=== PATIENT | female | born 1995 ===

== ENCOUNTER 2019-09-16 18:50 | Emergency (ER) | payer BC ==
[2019-09-16 19:10] VITALS: BP 129/62
[2019-09-16] MEDS ORDERED: Al Hydrox/Mg Hydrox/Simet LIQ* 30 ML UDC PO ONE (19:52)
[2019-09-16] MEDS ORDERED: Lidocaine 2% VISCOUS* 15 ML UDC PO ONE (19:53)
[2019-09-16] MEDS ORDERED: Famotidine TAB* 20 MG PO ONE (19:54)
--- NOTE | 2019-09-16 20:00 | ED ---
Abdominal Pain/Female - HPI Summary HPI Summary: 24 yo WF p/w epigastric pain radiating to right flank since yesterday after taking PO B12 tablet on an empty stomach when pain started and did not subside in spite of taking pepto bismol and mag citrate, Not related to eating food - History of Current Complaint Chief Complaint: UCAbdominalPain Stated Complaint: ABDOMINAL PAIN Time Seen by Provider: 09/16/19 19:40 Hx Obtained From: Patient Hx Last Menstrual Period: 08/24/2019 ?: No Onset/Duration: Sudden Onset, Lasting Hours Timing: Constant Severity Initially: Moderate Severity Currently: Moderate Pain Intensity: 6 Location: Epigastric, Flank - R Character: Sharp, Dull, Burning Aggravating Factor(s): Nothing Alleviating Factor(s): Nothing Allergies/Adverse Reactions: Allergies Allergy/AdvReac Type Severity Reaction Status Date / Time No Known Allergies Allergy Verified 09/16/19 19:10 Home Medications: Home Medications Acetaminophen 325 mg SUPP [Tylenol 325 mg Supp] 325 mg [place] Q4H PRN 09/16/19 [ History Confirmed 09/16/19] Ranitidine TAB (NF) [Zantac TAB (NF)] 150 mg PO BID PRN 10 Days #20 tab [Rx] PMH/Surg Hx/FS Hx/Imm Hx Previously Healthy: Yes - Surgical History Surgery Procedure, Year, and Place: left eye reconstructive surgery at 4 yrs old Infectious Disease History: No Infectious Disease History: Denies: Traveled Outside the [place] in Last 30 Days - Family History Known Family History: Positive: Non-Contributory - Social History Occupation: Student Alcohol Use: None Substance Use Type: Reports: None Smoking Status (MU): Never Smoked Tobacco Review of Systems Constitutional: Negative Eyes: Negative ENT: Negative Cardiovascular: Negative Respiratory: Negative Positive: Abdominal Pain - epigastric radiating to right flank Musculoskeletal: Negative Skin: Negative Neurological/Mental Status: Negative Psychological: Normal All Other Systems Reviewed And Are Negative: Yes Physical Exam - Summary Physical Exam Summary: Gen: NAD Eye Exam: Normal Eyes: Positive: Conjunctiva Clear ENT: Normal ENT inspection Neck: Supple Respiratory: Lungs clear, Normal breath sounds. Negative: Crackles, Rhonchi, Stridor, Wheezing Cardiovascular Exam: Normal, RRR, S1, S2 Abdomen: NT/ND Musculoskeletal Exam:moderate TTP on right upper abd and epigastric tenderness Neurological Exam: Normal Psychological Exam: Normal Skin Exam: Normal Vital Signs On Initial Exam: Initial Vitals Temp Pulse Resp BP Pulse Ox 36.8 C 77 16 129/62 100 09/16/19 19:04 09/16/19 19:04 09/16/19 19:04 09/16/19 19:04 09/16/19 19:04 Vital Signs Reviewed: Yes Diagnostics - Vital Signs Vital Signs Temp Pulse Resp BP Pulse Ox 09/16/19 19:04 36.8 C 77 16 129/62 100 - Laboratory Lab Statement: Any lab studies that have been ordered have been reviewed, and results considered in the medical decision making process. Abdominal Pain Fem Course/Dx - Course Course Of Treatment: pain somewhat improved with GI cocktail and protonix PO, advised to take Zantac OTC tonight and as script tomorrow and take as directed - Diagnoses Provider Diagnoses: Epigastric abdominal pain, Pill-induced gastritis Discharge ED - Sign-Out/Discharge Documenting (check all that apply): Patient Departure All imaging exams completed and their final reports reviewed: No Studies - Discharge Plan Condition: Stable Disposition: HOME Prescriptions: Ranitidine TAB (NF) [Zantac TAB (NF)] 150 mg PO BID PRN 10 Days #20 tab PRN Reason: gastritis pain Patient Education Materials: Gastritis (ED) Referrals: Deonte RAMOS,RACHEL Cuadra [Primary Care Provider] - - Billing Disposition and Condition Condition: STABLE Disposition: Home
[2019-09-16] MEDS ORDERED: Pantoprazole TAB * 40 MG TAB PO ONE (21:02)
== END 2019-09-16 21:39 | disposition home or self-care (01) ==
LOC: UCEAST 18:50
DX: K29.70 Gastritis, unspecified, without bleeding (principal); R10.13 Epigastric pain; T45.2X5A Adverse effect of vitamins, initial encounter; Y92.9 Unspecified place or not applicable
CPT/HCPCS: 99202; A9270-GY; G0463